=== PATIENT | female | born 1960 | race Caucasian/White ===

== ENCOUNTER 2024-02-18 14:23 | Day surgery (SDC) | payer BC ==
[2024-02-18] MEDS ORDERED: Depo-Medrol 40 MG/ML IM ONE (14:24)
[2024-02-18] MEDS ORDERED: BUPIVACAINE 0.5% VIAL IJ ONE (14:24)
[2024-02-18] MEDS ORDERED: XYLOCAINE-MPF 1% 5ML SDV IJ ONE (14:24)
--- NOTE | 2024-02-18 16:52 | XRAY ---
Indication: Left ankle injection. Intraoperative fluoroscopy provided for 15 seconds. Single frontal digital spot image submitted for interpretation demonstrates anterior needle tip projecting over talotibial articulation. Small amount of contrast injected for needle tip placement. Correlate with intraoperative findings/report.
--- NOTE | 2024-02-18 16:54 | XRAY ---
Indication: Right knee injection. Intraoperative fluoroscopy provided for 9 seconds. Single digital spot image submitted for interpretation demonstrates needle tip projecting over right femur intercondylar notch. Small amount of contrast injected for needle tip placement. Correlate with intraoperative findings/report.
--- NOTE | 2024-02-18 16:54 | XRAY ---
Indication: Left knee injection. Intraoperative fluoroscopy provided for 5 seconds. Single digital spot image submitted for interpretation demonstrates needle tip projecting over left femur intercondylar notch. Small amount of contrast injected for needle tip placement. Correlate with intraoperative findings/report.
--- NOTE | 2024-02-18 17:15 | XRAY ---
15 seconds of fluoroscopy was used in surgery for a left intra-articular ankle injection.
--- NOTE | 2024-02-18 17:15 | XRAY ---
9 seconds of fluoroscopy was used in surgery for a right intra-articular knee injection.
--- NOTE | 2024-02-18 17:15 | XRAY ---
5 seconds of fluoroscopy was used in surgery for a left intra-articular knee injection.
== END 2024-02-18 16:10 | disposition home or self-care (01) ==
LOC: SDC-PAIN 14:23
PROVIDERS: ATTEND Psychiatry & Neurology Pain Medicine
DX: M17.0 Bilateral primary osteoarthritis of knee (principal)
CPT/HCPCS: 20610; 73560; 73600; 77002; J1010; Q9966

== ENCOUNTER 2024-11-04 15:16 | Day surgery (SDC) | payer BC ==
[2024-11-04] MEDS ORDERED: Depo-Medrol 40 MG/ML IM ONE (15:17)
[2024-11-04] MEDS ORDERED: BUPIVACAINE 0.5% VIAL IJ ONE (15:17)
[2024-11-04] MEDS ORDERED: LIDOCAINE HCL 1% AMPUL 5 ML IJ ONE (15:17)
--- NOTE | 2024-11-04 16:45 | XRAY ---
Indication: Right knee injection. Intraoperative fluoroscopy provided for 10 seconds. Single digital spot image submitted for interpretation demonstrates needle tip projecting over right femur intercondylar notch. Small amount of contrast injected for needle tip placement. Correlate with intraoperative findings/report.
--- NOTE | 2024-11-05 09:24 | XRAY ---
10 seconds of fluoroscopy was used in surgery for a right knee intra-articular injection.
== END 2024-11-04 16:40 | disposition home or self-care (01) ==
LOC: SDC-PAIN 15:16
PROVIDERS: ATTEND Psychiatry & Neurology Pain Medicine
DX: M17.11 Unilateral primary osteoarthritis, right knee (principal)
CPT/HCPCS: 20610; 73560; 77002; Q9966